=== PATIENT | male | born 1980 | race Caucasian/White ===

== ENCOUNTER 2020-12-09 16:14 | Emergency (ER) | payer MEDICAID ==
[~2020-12-09] VITALS: Ht 177.8 cm; Wt 134.1 kg
[2020-12-09 17:01] LABS: BASOPHILS # (AUTO) 0.1 X10'3 (0-0.2); BASOPHILS % (AUTO) 0.8 % (0-1); EOSINOPHILS # (AUTO) 0.2 X10'3 (0-0.9); EOSINOPHILS % (AUTO) 1.8 % (0-6); HEMATOCRIT 46.5 % (42.0-52.0); HEMOGLOBIN 15.8 g/dl (14.0-17.9); LYMPHOCYTES # (AUTO) 2.8 X10'3 (1.1-4.8); LYMPHOCYTES % (AUTO) 29.2 % (21-51); MEAN CORPUSCULAR HEMOGLOBIN 31.6 PG (27.0-31.0); MEAN PLATELET VOLUME 7.1 FL (7.4-10.4); MONOCYTES # (AUTO) 0.5 X10'3 (0-0.9); MONOCYTES % (AUTO) 5.8 % (2-12); NEUTROPHILS # (AUTO) 5.9 X10'3 (1.8-7.7); NEUTROPHILS % (AUTO) 62.4 % (42-75); PLATELET COUNT 310 X10'3 (140-440); RED CELL DISTRIBUTION WIDTH 13.3 % (11.5-14.5); WHITE BLOOD COUNT 9.5 X10'3 (4.5-11.0)
[2020-12-09 17:11] LABS: ALANINE AMINOTRANSFERASE 40 U/L (12-78); ALBUMIN 4.3 G/DL (3.4-5.0); ALBUMIN/GLOBULIN RATIO 1.5 (1.1-1.5); ALKALINE PHOSPHATASE 88 IU/L (46-116); ANION GAP 11 (8-16); ASPARTATE AMINO TRANSFERASE 19 U/L (10-37); BILIRUBIN,TOTAL 0.5 MG/DL (0.1-1.0); BLOOD UREA NITROGEN 11 MG/DL (7-18); BUN/CREATININE RATIO 9.6 (5.4-32.0); CALCIUM 8.8 MG/DL (8.5-10.1); CHLORIDE 107 MMOL/L (99-107); CREATININE 1.14 MG/DL (0.60-1.10); GLUCOSE 153 MG/DL (70-104); POTASSIUM 3.7 MMOL/L (3.5-5.1); SODIUM 144 MMOL/L (135-145); TOTAL CARBON DIOXIDE 25.7 MMOL/L (24-32); TOTAL PROTEIN 7.1 G/DL (6.4-8.2); eGFR 72 ML/MIN
[2020-12-09] MEDS ORDERED: tamsulosin 0.4mg capsule PO STA (18:51)
[2020-12-09] MEDS ORDERED: normal saline 1000ML IV soln IVB ONE (18:55)
[2020-12-09] MEDS ORDERED: ketorolac trometh. 30mg/ml inj. IV ONE (18:55)
[2020-12-09 19:08] LABS: CLARITY,URINE CLOUDY (Clear); GLUCOSE, URINE NEGATIVE (Neg); KETONES,URINE TRACE mg/dl (Neg); LEUKOCYTE ESTERASE ,URINE TRACE (Neg); NITRITES, URINE NEGATIVE (Neg); OCCULT BLOOD,URINE LARGE (Neg); PROTEIN,URINE 30 mg/dl (Neg)
[2020-12-09 19:13] LABS: COLOR,URINE DARK YELLOW (Yellow); UA COLLECTION TYPE VOIDED
[2020-12-09 19:15] LABS: BACTERIA,URINE FEW /HPF (Neg); MUCUS STRANDS FEW /LPF (Neg); RBC,URINE TNTC /HPF (0-2); SQUAMOUS EPITHELIAL CELL,UR NONE SEEN /LPF (FEW); WBC,URINE 0-4 /HPF (0-4)
[2020-12-09] MEDS ORDERED: HYDR-3965 PO (19:22)
[2020-12-09] MEDS ORDERED: FLO0.4C PO (19:22)
[2020-12-09] MEDS ORDERED: NAPR-56 PO (19:22)
[2020-12-09 21:23] VITALS: BP 132/85
== END 2020-12-09 21:24 | disposition home or self-care (01) ==
LOC: ER 16:15
DX: N20.0 Calculus of kidney (principal); Z79.899 Other long term (current) drug therapy
CPT/HCPCS: 36415; 74176; 80053; 81001; 85025; 87088; 96361; 96374; 99284; J1885; J7030